=== PATIENT | female | born 1995 | race African-American/Black ===

== ENCOUNTER 2021-10-26 12:15 | Emergency (ER) | payer MEDICAID ==
[~2021-10-26] VITALS: Ht 157.5 cm; Wt 75.0 kg
[~2021-10-26 12:15] MED LIST: ALBU6.7H15 INH; IBUP-2030 PO; IBUP1TAB73 PO
[2021-10-26] MEDS ORDERED: DEPAKOTE (12:29)
[2021-10-26] MEDS ORDERED: KETOROLAC 60MG/2ML VIAL IM STA (13:45)
[2021-10-26] MEDS ORDERED: IBUP-2029 PO (15:09)
[2021-10-26 15:49] VITALS: BP 126/86
== END 2021-10-26 15:19 | disposition home or self-care (01) ==
LOC: ER 12:15
DX: S40.022A Contusion of left upper arm, initial encounter (principal); Z79.899 Other long term (current) drug therapy; Y04.0XXA Assault by unarmed brawl or fight, initial encounter; Y93.89 Activity, other specified; Y92.89 Other specified places as the place of occurrence of the external cause; Y99.8 Other external cause status
CPT/HCPCS: 73080; 73090; 96372; 99284; J1885

== ENCOUNTER 2021-11-03 13:33 | Emergency (ER) | payer MEDICAID ==
[~2021-11-03] VITALS: Ht 157.5 cm; Wt 59.0 kg
[~2021-11-03 13:33] MED LIST changes: +DEPAKOTE; +IBUP-2029 PO
[2021-11-03 19:24] LABS: CLARITY URINE CLEAR (CLEAR); COLOR URINE YELLOW (YELLOW); KETONES URINE NEGATIVE (NEGATIVE); LEUKOCYTE ESTERASE URINE 1+ (NEGATIVE); NITRITE URINE NEGATIVE (NEGATIVE); OCCULT BLOOD URINE NEGATIVE (NEGATIVE); PH URINE 5.5 (4.5-8.0); PROTEIN URINE NEGATIVE (NEGATIVE); UROBILINOGEN URINE 0.2 E.U./dL (0.2-1.0)
[2021-11-03] MEDS ORDERED: HYDROCODONE/ACETAMINOPHEN 5/325MG TABLET PO ONE (22:15)
[2021-11-03 22:24] VITALS: BP 110/70
[2021-11-03] MEDS ORDERED: METR500T MT (23:56)
[2021-11-03] MEDS ORDERED: DOXY100C5 MT ×2 (23:56)
[2021-11-04] MEDS ORDERED: FLUCONAZOLE 100MG TABLET PO ONE
[2021-11-04] MEDS ORDERED: CEFTRIAXONE SODIUM 500 MG/VIAL IM ONE
[2021-11-04] MEDS ORDERED: DOXY100C5 MT (00:02)
[2021-11-04 00:25] LABS: BASOPHILS % 0.6 % (0.0-2.0); EOSINOPHILS % 0.4 % (0.0-5.0); HEMATOCRIT. 37.8 % (36.0-48.0); HEMOGLOBIN. 12.3 g/dL (12.0-16.0); LYMPHOCYTES % 15.7 % (20.0-50.0); MEAN CORPUSCULAR HEMOGLOBIN 27.4 pg (28.0-32.0); MEAN CORPUSCULAR VOLUME 84.1 fL (81.0-99.0); MEAN PLATELET VOLUME 8.9 fl (7.4-10.4); MONOCYTES % 9.8 % (2.0-8.0); NEUTROPHILS % 73.5 % (40.0-76.0); PLATELET 248 x1000/uL (130-400); RED BLOOD CELL COUNT 4.49 mill/uL (4.2-5.4); RED CELL DISTRIBUTION WIDTH 13.1 % (11.6-14.6)
[2021-11-04 00:30] LABS: CHLORIDE 103 mEq/L (98-107)
[2021-11-04 00:43] LABS: B-HCG QUANTITATIVE < 1 mIU/mL (<3)
[2021-11-06 04:10] LABS: HIV SCREEN 4G Non Reactive (Non Reactive)
[2021-11-10 04:07] LABS: NEISSERIA GONORRHOEAE NAA Negative (Negative)
== END 2021-11-04 01:29 | disposition home or self-care (01) ==
LOC: ER 13:33
DX: N73.0 Acute parametritis and pelvic cellulitis (principal); Z79.899 Other long term (current) drug therapy
CPT/HCPCS: 36415; 76830; 76856; 80053; 81003; 81025; 84702; 85025; 86850; 86900; 86901; 87210; 87389; 87491; 87591; 96372; 99284; J0696

== ENCOUNTER 2022-02-20 20:59 | Emergency (ER) | payer MEDICAID ==
[~2022-02-20] VITALS: Ht 157.5 cm; Wt 72.8 kg
[~2022-02-20 20:59] MED LIST changes: +DOXY100C5 MT; +METR500T MT
[2022-02-20 22:47] LABS: CLARITY URINE CLOUDY (CLEAR); COLOR URINE YELLOW (YELLOW); KETONES URINE TRACE (NEGATIVE); LEUKOCYTE ESTERASE URINE 2+ (NEGATIVE); NITRITE URINE NEGATIVE (NEGATIVE); OCCULT BLOOD URINE NEGATIVE (NEGATIVE); PROTEIN URINE NEGATIVE (NEGATIVE); SPECIFIC GRAVITY URINE 1.027 (1.005-1.030); UROBILINOGEN URINE 0.2 E.U./dL (0.2-1.0)
[2022-02-20] MEDS ORDERED: IBUPROFEN 800MG TABLET PO ONE (23:45)
[2022-02-20 23:55] VITALS: BP 108/70
[2022-02-21] MEDS ORDERED: NITR-87 MT (00:02)
[2022-02-21] MEDS ORDERED: IBUP-2029 PO (00:02)
[2022-02-21] MEDS ORDERED: METR-167 MT (00:02)
[2022-02-24 04:10] LABS: NEISSERIA GONORRHOEAE NAA Negative (Negative)
== END 2022-02-20 22:15 | disposition home or self-care (01) ==
LOC: ER 20:59
DX: N76.0 Acute vaginitis (principal); N39.0 Urinary tract infection, site not specified; Z79.899 Other long term (current) drug therapy
CPT/HCPCS: 81003; 81025; 87210; 87491; 87591; 99283